=== PATIENT | male | born 1980 | race Caucasian/White ===

== ENCOUNTER → 2020-08-08 12:10 | Outpatient (CLI) | payer OTHER, SELFPAY ==
--- NOTE | ~2020-08-08 | MR_ITS ---
EXAMINATION: MR cervical spine wo con DATE: 08/08/2020 12:55 INDICATION: Cervical radiculopathy on the left. TECHNIQUE: Magnetic resonance imaging (MRI) of the cervical spine was performed without intravenous c ontrast. Sequences included sagittal T2-weighted FSE, sagittal STIR FSE, sagittal T1-weighted FSE, ax ial MERGE, and axial T2-weighted FSE. COMPARISON: None FINDINGS: There is mild kyphosis of cervical spine. Vertebral body heights are normal. Intervertebral disc heights are normal. The spinal cord signal intensity is normal. The following disc levels are s pecifically discussed: C2-C3: The disc does not extend beyond the endplate margin. There is no uncovertebral joint osteoarth ritis. There is mild bilateral facet joint osteoarthritis. There is no neural foraminal stenosis. The re is no central canal stenosis. C3-C4: The disc is bulging. There is mild bilateral uncovertebral joint osteoarthritis. There is mild bilateral facet joint osteoarthritis. There is no neural foraminal stenosis. There is mild central c anal stenosis. C4-C5: The disc does not extend beyond the endplate margin. There is no uncovertebral joint osteoarth ritis. There is mild bilateral facet joint osteoarthritis. There is no neural foraminal stenosis. The re is no central canal stenosis. C5-C6: The disc is bulging. There is mild bilateral uncovertebral joint osteoarthritis. There is no f acet joint osteoarthritis. There is mild bilateral neural foraminal stenosis. There is mild central c anal stenosis. C6-C7: There is a central extrusion. There is mild bilateral uncovertebral joint osteoarthritis. Ther e is no facet joint osteoarthritis. There is no neural foraminal stenosis. There is mild central alize l stenosis. C7-T1: The disc does not extend beyond the endplate margin. There is no uncovertebral joint osteoarth ritis. There is mild right and moderate left facet joint osteoarthritis. There is no neural foraminal stenosis. There is no central canal stenosis. IMPRESSION: 1. Mild cervical spondylosis. Reviewed, dictated and finalized at location B. [employer] ASSURANCE SUPERVISOR TRIM
== END ==
PROVIDERS: PCP Family Medicine Adolescent Medicine; Visit Provider Family Medicine Adolescent Medicine
DX: M47.22 Other spondylosis with radiculopathy, cervical region (principal)
CPT/HCPCS: 72141

== ENCOUNTER 2024-06-24 22:26 | Emergency (ER) | payer BC, SELFPAY ==
--- NOTE | ~2024-06-24 | CT_ITS ---
Non-contrast CT scan of the Abdomen and Pelvis Clinical indication: Hematuria, left flank pain Technique: 2.5 mm axial scans were obtained through the abdomen and pelvis without intravenous or or al contrast. Dose reduction technique was used on this scan by utilizing automated exposure control a nd iterative reconstruction technique. The dose-length product (DLP) was 227.38 mGy-cm. Findings: Images through the lung bases reveal 3 mm right lower lobe pulmonary nodule. 7 mm nonobstructing right renal stone present. No left renal stone evident. No right ureteral stone o r right hydronephrosis. There is a 6 mm distal left ureteral stone, with mild left hydroureteronephro sis. The liver, spleen, pancreas, gallbladder, and adrenals appear normal. There is no aortic aneurysm. There is no evidence of bowel obstruction. Normal appendix. Images through the pelvis were performed. There is no evidence of ascites or lymphadenopathy. Urinary bladder unremarkable. No pelvic mass seen. Impression: 6 mm distal left ureteral stone with mild left hydroureteronephrosis. 7 mm nonobstructing right renal stone. Reviewed, dictated and finalized at [facility]. Impression: 6 mm distal left ureteral stone with mild left hydroureteronephrosis. 7 mm nonobstructing right renal stone.
[2024-06-24 22:27] VITALS: BP 140/94; PULSE 64; RESP 16; TEMP 36.4; O2SAT 98
[2024-06-24 23:34] LABS: Basophils Absolute Auto 0.1 K/mm3 (0.0-0.1); Basophils Percent Auto 0.7 % (0.2-1.2); Eosinophils Absolute Auto 0.1 K/mm3 (0-0.3); Eosinophils Percent Auto 1.4 % (0-4.4); Hematocrit 40.9 % (42.0-52.0); Hemoglobin 13.9 g/dL (14.0-18.0); Immature Granulocyte Absolute 0.02 K/mm3 (0.00-0.031); Immature Granulocyte Percent A 0.3 % (0-0.5); Lymphocytes Absolute Auto 1.74 K/mm3 (0.9-3.2); Lymphocytes Percent Auto 23.6 % (18.3-44.2); Mean Corpuscular Volume 88.1 fl (80-100); Mean Platelet Volume 8.9 fl (7.4-10.4); Monocytes Absolute Auto 0.7 K/mm3 (0.1-0.6); Monocytes Percent Auto 8.8 % (2.6-8.5); Neutrophils Absolute Auto 4.8 K/mm3 (1.3-6.7); Neutrophils Percent Auto 65.2 % (45.5-73.1); Platelet Count Result 217 k/mm3 (150-375); Red Blood Count 4.64 M/mm3 (4.6-6.20); Red Cell Distribution Width 12.6 % (11.5-14.5); White Blood Count 7.4 K/mm3 (4.5-10.0)
[2024-06-24 23:40] LABS: Add Urine Microscopic? YES; Appearance Urine Cloudy (Clear); Bacteria Urine None Seen /hpf; Bilirubin Urine Negative (Negative); Blood Urine 3+ (Negative); Color Urine Yellow (Yellow); Glucose Urine UA Negative (Negative); Ketones Urine 1+ mg/dL (Negative); Leukocyte Esterase Ur Trace LEU/UL (Negative); Nitrate Urine Negative (Negative); Non Pathogenic Casts 0-2; Protein Urine 1+ mg/dL (Negative); RBC Urine >100 /hpf (0-2); Specific Grav Ur 1.026 (1.001-1.035); Squamous Epithelial Cell Urine None Seen /hpf (Few); WBC Urine 0-5 /hpf (0-3); pH Urine 5.5 (5.0-9.0)
[2024-06-24 23:48] LABS: Alanine Aminotransferase 26 U/L (6-50); Albumin Level 4.3 g/dL (3.5-5.1); Alkaline Phosphatase 57 U/L (38-126); Anion Gap 7 mmol/L (4-12); Aspartate Amino Transferase 38 U/L (17-59); Bilirubin,Total 0.6 mg/dL (0.2-1.3); Blood Urea Nitrogen 24 mg/dL (9-20); Carbon Dioxide 27 mmol/L (22-30); Chloride 104 mmol/L (98-107); Estimated CRCL calculation 81 ml/min; Estimated Glomerular Filt Rate > 60; Glucose 107 mg/dL (65-110); Lipase 117 U/L (23-300); Potassium 3.6 mmol/L (3.4-5.0); Sodium 138 mmol/L (137-145)
--- NOTE | 2024-06-25 00:21 | ED_ITS ---
HPI - Abdominal Pain General Chief Complaint: Abdominal Pain Stated Complaint: left flank and back pain Time Seen by Provider: 06/25/24 00:07 Source: patient Mode of arrival: ambulatory Limitations: no limitations History of Present Illness HPI narrative: Patient presents with complaint of Left flank and back pain x1 week. He also noticed that his urine was dark, almost brown. Has not seen any bright red blood. He has been building a deck so thought maybe it was due to working outside and he was dehydrated. Pain has now become dull in general but intense when it comes on. LBM today but he felt like he had to force himself to have a BM. Denies it being hard to go once he did though. No hard stool. No diarrhea or bloody stool. NO history of kidney stones, UTI. Denies urgency / frequency/dysuria. Has not taken any pain medications at home. Does not folllow with a urologist. NO injury/trauma to back or abdomen. Related Data Allergies Allergy/AdvReac Type Severity Reaction Status Date / Time banana Allergy Unknown VOMITING Verified 06/24/24 22:30 No Known Drug Allergies Allergy Unknown Diarrhea Verified 06/24/24 22:30 Exam Const: General: healthy appearing, no acute distress and alert; No confusion, diaphoretic or ill appearing Nutritional Appearance: well nourished Orientation/consciousness: patient oriented x3 Limitations: no limitations HENMT: Head: normal to inspection, no contusions and no lacerations Eyes: Direct Ophthalmoscopy: no photophobia Other: no scleral icterus Neck: Neck: no meningeal signs Resp: Effort & Inspection: normal respiratory effort, not labored, no r etractions, not tachypneic and no use of accessory muscles Cardio: Rate: regular rate GI: GI Palp: Yes Soft to palpation, No Tenderness to palpation present (GI), No Guarding due to palpation present (GI), No Rigid due to palpation and No Rebound tenderness present : General: Yes bladder normal to palpation Back/Spine/Pelvis: Back: no CVA tenderness Skin: General skin exam: normal color, no jaundice and no pallor Neuro: General: patient oriented x3 and moves all extremities Extrem: General: normal to inspection Psych: Mental Status: mental status grossly normal Affect: normal affect, No Sad affect present and No Anxious affect present Attitude: cooperative Course Vital Signs Vital signs: Vital Signs Temperature 97.5 F L 06/24/24 22:27 Pulse Rate 64 06/24/24 22:27 Respiratory Rate 16 06/24/24 22:27 Blood Pressure 140/94 H 06/24/24 22:27 Pulse Oximetry 98 06/24/24 22:27 Oxygen Delivery Room Air 06/24/24 22:27 Temperature 97.4 F L 06/25/24 02:46 Pulse Rate 77 06/25/24 02:46 Respiratory Rate 15 06/25/24 02:46 Blood Pressure 134/88 06/25/24 02:46 Pulse Oximetry 100 06/25/24 02:46 Oxygen Delivery Room Air 06/24/24 22:27 MDM - Abdominal Pain MDM Narrative Medical decision making narrative: Patient presents with L flank/back pain x1 week with some radiation into abdomen where he now has dull pain. Urine has also been dark. In the emergency department is afebrile with vital signs notable for mild h ypertension. Urinalysis with hematuria but without signs of infection. Will proceed with Imaging and analgesia ordered. Creatinine technically within normal limits though unknown baseline so may represent TATUM , unclear at this time though there is elevated BUN. Mild CPK elevation ago not at a level consistent with rhabdomyolysis. Will PO Challenge. Stone at UVJ noted. Discussed regimen of medications to assist with passage and symptom management. Provided prescriptions for this as well as urology follow up contact information. Stable for discharge. Differential Diagnosis Differential diagnosis: Likely abdominal pain, calculus of kidney, constipation, diverticulitis and other ( rhabdomyolysis) Lab Data Attestation: I reviewed the patient's lab results. Lab results narrative: Normocytic anemia with no prior for comparison 06/24/24 23:21 06/24/24 23:21 Labs: Lab Results 06/24/24 06/24/24 06/24/24 Range/Units 23:19 23:21 23:25 WBC 7.4 (4.5-10.0) K/mm3 RBC 4.64 (4.6-6.20) M/mm3 Hgb 13.9 L (14.0-18.0) g/dL Hct 40.9 L (42.0-52.0) % MCV 88.1 (80-100) fl MCH 30.0 (26-34) pg MCHC 34.0 (32-36) g/dl RDW 12.6 (11.5-14.5) % Plt Count 217 (150-375) k/mm3 MPV 8.9 (7.4-10.4) fl Immature Gran % (Auto) 0.3 (0-0.5) % Neut % (Auto) 65.2 (45.5-73.1) % Lymph % (Auto) 23.6 (18.3-44.2) % [place] % (Auto) 8.8 H (2.6-8.5) % Eos % (Auto) 1.4 (0-4.4) % Baso % (Auto) 0.7 (0.2-1.2) % Lymph # (Auto) 1.74 (0.9-3.2) K/mm3 [place] # (Auto) 0.7 H (0.1-0.6) K/mm3 Eos # (Auto) 0.1 (0-0.3) K/mm3 Baso # (Auto) 0.1 (0.0-0.1) K/mm3 Abs Immat Gran (auto) 0.02 (0.00-0.031) K/mm3 Absolute Neuts (auto) 4.8 (1.3-6.7) K/mm3 Absolute Nucleated RBC 0.000 (0.0-0.012) K/mm3 Nucleated RBC % 0.0 (0.0-0.2) % Sodium 138 (137-145) mmol/L Potassium 3.6 (3.4-5.0) mmol/L Chloride 104 (98-107) mmol/L Carbon Dioxide 27 (22-30) mmol/L Anion Gap 7 (4-12) mmol/L BUN 24 H (9-20) mg/dL Creatinine 1.20 (0.7-1.3) mg/dL Estim Creat Clear Calc 81 ml/min Estimated GFR > 60 (59 - ) Glucose 107 (65-110) mg/dL Calcium 10.0 (8.4-10.2) mg/dL Total Bilirubin 0.6 (0.2-1.3) mg/dL AST 38 (17-59) U/L ALT 26 (6-50) U/L Alkaline Phosphatase 57 (38-126) U/L Total Creatine Kinase 454 H (55-170) U/L Total Protein 7.0 (6.3-8.2) g/dL Albumin 4.3 (3.5-5.1) g/dL Lipase 117 (23-300) U/L Urine Color Yellow (Yellow) Urine Appearance Cloudy H (Clear) Urine pH 5.5 (5.0-9.0) Ur Specific [place] 1.026 (1.001-1.035) Urine Protein 1+ H (Negative) mg/dL Urine Glucose (UA) Negative (Negative) mg/dL Urine Ketones 1+ H (Negative) mg/dL Ur Blood (Man) 3+ H (Negative) Urine Nitrate Negative (Negative) Urine Bilirubin Negative (Negative) Urine Urobilinogen 1.0 (<2.0) mg/dL Leukocyte Esterase Rfl Trace H (Negative) ROSALINO/UL Urine RBC >100 H (0-2) /hpf Urine WBC 0-5 (0-3) /hpf Ur Squamous Epith Cells None seen (Few) /hpf Urine Bacteria None seen /hpf Urine Casts 0-2 Imaging Data Attestation: I personally reviewed and interpreted this imaging study as follows: Radiologist's impression: ITS Impressions Abdomen/Pelvis CT 06/25/24 06:24 Impression: 6 mm distal left ureteral stone with mild left hydroureteronephrosis. 7 mm nonobstructing right renal stone. CT Abd/pelvis w/o contrast Stat Rad: limited due to lack of IV contrast. Left UVJ 0.2 cm stone. Mild left hydroureteronephrosis. Correlate for UTI/pyelonephritis. Discharge Plan Discharge Clinical Impression: Calculus of ureterovesical junction (UVJ), Hematuria, Normocytic anemia, El evated CPK Patient Disposition: Home, Self-Care Condition: Stable Instructions: Antibiotic Form, Kidney Stones (ED), Renal Colic (ED), Hematuria (ED), How to Strain Your Urine (ED), Anemia (ED) Additional Instructions: As we discussed, you have a 0.2 cm stone at the intersection between your ureter and bladder known as the UVJ. kidney stones of this size should pass on their own but we use the medications prescribed which can assist this process ( The ibuprofen for pain, the Flomax to move the urine flow forward, and the ondansetron oral disintegrating tablets if you have any nausea provide any new from taking the other medications). You can strain your urine and follow up with urologist (listed below) if desired. return to the emergency department if any new or worsening symptoms such as fever greater than 100 point degrees F intractable nausea or vomiting, pain not responding to medications, etc. Prescriptions: New ibuprofen 600 mg tablet 600 mg PO TID PRN (Reason: pain) Qty: 30 0RF ondansetron 4 mg tablet,disintegrating 4 mg PO Q8H PRN (Reason: nausea and vomiting) Qty: 7 0RF tamsulosin [Flomax] 0.4 mg capsule 0.4 mg PO DAILY Qty: 7 0RF Follow-up/Referrals: Glenroy Connolly MD [Physician] - (urology) Jermaine Chirinos MD [Primary Care Provider] - Stand Alone Forms: Work/School Release IP Time of Disposition: 02:19
[2024-06-25 00:47] LABS: Creatine Kinase 454 U/L (55-170)
[2024-06-25 01:05] VITALS: BP 137/84; PULSE 69; RESP 15; O2SAT 98
--- NOTE | 2024-06-25 01:48 | PC.NURSE ---
Winfield has been held due to pt stating he does not need anything for pain at this time.
[2024-06-25] MEDS: KETOROLAC 15 MG/ML VIAL (*BKC) IV PUSH (02:31)
[2024-06-25] MEDS: TAMSULOSIN HCL 0.4 MG CAPSULE PO (02:31)
[2024-06-25 02:46] VITALS: BP 134/88; PULSE 77; RESP 15; TEMP 36.3; O2SAT 100
--- NOTE | 2024-06-25 02:48 | PC.NURSE ---
15 mg ketorlac given IM in the L deltoid.
== END 2024-06-25 02:47 | disposition home or self-care (01) ==
PROVIDERS: Physician Assistant; Emergency Provider Student in an Organized Health Care Education/Training Program; PCP Family Medicine Adolescent Medicine
DX: N20.1 Calculus of ureter (principal); D64.9 Anemia, unspecified; R74.8 Abnormal levels of other serum enzymes
CPT/HCPCS: 36415; 74176; 80053; 81001; 82550; 83690; 85025; 96374; 99284; A9270; J1885

== ENCOUNTER 2024-11-29 20:19 | Day surgery (SDC) | payer BC, SELFPAY ==
[2024-11-29 20:22] VITALS: BP 135/106; PULSE 99; RESP 15; TEMP 36.3; O2SAT 100
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
--- OUTSIDE RECORDS SUMMARY | 2024-11-29 20:22 | XMS_ITS | Clinical Summary ---
Author Organization [facility] Address [address] [place] [address] Phone Care Team Providers Care Stiff Neck Loader Name Role Phone Jermaine Chirinos MD Primary Care Provider [phone]- [phone] Allergies No known active allergies Medications meloxicam (MOBIC) 15 mg tablet Take 1 Tablet (15 mg) by mouth daily With food. 30 Tablet 1 01/21/2016 Active Hospital, Clinic, or Other Facility Administered Medication Ordered Dose Route Frequency Start Date End Date Status methylPREDNISolone acetate (DEPO-Medrol) 40 mg/mL injection 80 mgIndications:Impin gement syndrome of left shoulder 80 mg Intra-arTICu ONE TIME ONLY 08/05/2017 Active Active Problems No known active problems Social History Tobacco Use Types Packs/Day Years Used Date Smoking Tobacco: Former Cigarettes Q uit: 01/12/2005 Alcohol Use Standard Drinks/Week Comments Not Asked 0 (1 standard drink = 0.6 oz pur e alcohol) Sex and Gender Information Value Date Recorded Sex Assigned at Not on file Legal Sex Male 2:08 PM CDT Gender Identity Not on file Sexual Orientation Not on file Last Filed Vital Signs Vital Sign Reading Time Taken Comments Blood Pressure 130/84 01/13/2016 9:02 AM CDT Pulse 69 01/13/2016 9:02 AM CDT Temperature - - Respiratory Rate - - Oxygen Saturation - - Inhaled Oxygen Concentration - - Weight 86.2 kg (190 lb) 07/20/2017 8:03 AM SHELL COREMAKER Height 188 cm (6' 2 ) 07/20/2017 8:03 AM SHELL COREMAKER Body Mass Index 24.39 07/20/2017 8:03 AM SHELL COREMAKER Plan of Treatment Health Maintenance Due Date Last Done Comments DTAP/TDAP/TD VACCINES (1 - Tdap) 01/30/1999 HEPATITIS B VACCINES (1 of 3 - 19+ 3-dose series) 01/30/1999 INFLUENZA VACCINE (#1) 2024 HPV VACCINES Aged Out No longer eligi ble based on patient's age to complete this topic PNEUMOCOCCAL VACCINE 0-49 YEARS Aged Out No longer eligible based on patient's age to complete this topic Care Teams Stiff Neck Loader Relationship Specialty Start Date End Date Jermaine Chirinos MD PCP - General Family Practice 01/21/16
[2024-11-29] MEDS: SODIUM CHLORIDE 0.9% IV 1,000 ML 999 ML IV CONT (21:18)
[2024-11-29] MEDS: GLUCAGON FOR INJ 1 MG VIAL IV PUSH (21:18)
[2024-11-29] MEDS: ONDANSETRON INJ 4 MG/2 ML VIAL IV PUSH (21:18)
--- NOTE | 2024-11-29 21:19 | ED_ITS ---
HPI - General Adult General Chief complaint: Skin/Abscess/Foreign Body Stated complaint: Difficulty swallowing-poss food stuck Time Seen by Provider: 11/29/24 21:19 History of Present Illness HPI narrative: Patient is a 44-year-old male who presents ER with difficulty swelling. He was eating some roast when it got stuck. He has history of esophageal stricture and required dilation 2 years ago at [facility]. Reports adverse related to acid reflux. He is not currently on a PPI. He is unable to get the food to pass which he typically is able to do. He is having his spit and water come back up when he tries to swallow. He has discomfort in the chest due to this. Related Data Allergies Allergy/AdvReac Type Severity Reaction Status Date / Time banana Allergy Unknown VOMITING Verified 06/24/24 22:30 No Known Drug Allergies Allergy Unknown Diarrhea Verified 06/24/24 22:30 Review of Systems Review of Systems: All systems reviewed & are unremarkable except as noted in HPI and below Constitutional: Constitutional: Reports no additional constitutional complaints ENT: Reports system reviewed and no additional complaints, except as documented Cardiovascular: Cardiovascular: Reports no additional cardiovascular complaints Gastrointestinal: Gastrointestinal: Reports no additional gastrointestinal complaints PMFSH Past Medical History Medical History (Updated 11/29/24 @ 22:08 by Kiran Song MD) GERD (gastroesophageal reflux disease) Surgical History Surgical History (Updated 11/29/24 @ 21:20 by Kiran Song MD) History of esophagogastroduodenoscopy (EGD) Exam Narrative: GENERAL: Uncomfortable-appearing, well-nourished, and in no acute distress. HEAD: Normocephalic, atraumatic. ENT: Mucous membranes moist. Frequent spitting NECK: Supple. CHEST: Clear to auscultation. No respiratory distress. HEART: Regular rate and rhythm. Normal peripheral pulses. ABDOMEN: Soft, nontender, nondistended. EXTREMITIES: Normal range of motion. No edema. NEURO: Alert and oriented x3. PSYCH: Normal mood and affect. Course Course Emergency Course: GI will take the patient to the GI suite for a procedure. Vital Signs Vital signs: Vital Signs Temperature 97.4 F L 11/29/24 20:22 Pulse Rate 99 11/29/24 20:22 Respiratory Rate 15 11/29/24 20:22 Blood Pressure 135/106 H 11/29/24 20:22 Pulse Oximetry 100 11/29/24 20:22 Oxygen Delivery Room Air 11/29/24 20:22 Temperature 97.4 F L 11/29/24 20:22 Pulse Rate 99 11/29/24 20:22 Respiratory Rate 15 11/29/24 20:22 Blood Pressure 135/106 H 11/29/24 20:22 Pulse Oximetry 100 11/29/24 20:22 Oxygen Delivery Room Air 11/29/24 20:22 Medical Decision Making Vital Signs Vital Signs: Vital Signs Temperature 97.4 F L 11/29/24 20:22 Pulse Rate 99 11/29/24 20:22 Respiratory Rate 15 11/29/24 20:22 Blood Pressure 135/106 H 11/29/24 20:22 Pulse Oximetry 100 11/29/24 20:22 Oxygen Delivery Room Air 11/29/24 20:22 Temperature 97.4 F L 11/29/24 20:22 Pulse Rate 99 11/29/24 20:22 Respiratory Rate 15 11/29/24 20:22 Blood Pressure 135/106 H 11/29/24 20:22 Pulse Oximetry 100 11/29/24 20:22 Oxygen Delivery Room Air 11/29/24 20:22 Lab Data Labs: Lab Results 11/29/24 Range/Units 21:21 POC Capillary Glucose 105 (65-105) mg/dl Discharge Plan Discharge Clinical Impression: Esophageal obstruction due to food impaction Patient Disposition: Still a Patient Condition: Stable Patient Language: Turkmen Prescriptions: No Action ibuprofen 600 mg tablet 600 mg PO TID PRN (Reason: pain) Qty: 30 0RF ondansetron 4 mg tablet,disintegrating 4 mg PO Q8H PRN (Reason: nausea and vomiting) Qty: 7 0RF tamsulosin [Flomax] 0.4 mg capsule 0.4 mg PO DAILY Qty: 7 0RF Follow-up/Referrals: Jermaine Chirinos MD [Primary Care Provider] -
[2024-11-29 21:23] LABS: Glucose Point of Care 105 mg/dl (65-105)
--- OUTSIDE RECORDS SUMMARY | 2024-11-29 22:06 | XMS_ITS | Clinical Summary ---
Author Organization [facility] Address [address] [place] [address] Phone Care Team Providers Care Operating Engineer Apprentice Name Role Phone Jermaine Chirinos MD Primary Care Provider +1- [phone] Allergies No known active allergies Medications meloxicam [...] 86.2 kg (190 lb) 07/20/2017 8:03 AM TECHNICAL SERVICE REPRESENTATIVE Height 188 cm (6' 2 ) 07/20/2017 8:03 AM TECHNICAL SERVICE REPRESENTATIVE Body Mass Index 24.39 07/20/2017 8:03 AM TECHNICAL SERVICE REPRESENTATIVE Plan of Treatment Health Maintenance Due Date [...] age to complete this topic Care Teams Operating Engineer Apprentice Relationship Specialty Start Date End Date Jermaine Chirinos MD PCP - General Family Practice 01/21/16
--- OUTSIDE RECORDS SUMMARY | 2024-11-29 22:06 | XMS_ITS | Encounter Summary ---
Author Organization [facility] Address [address] [place] [address] Care Team Providers Care Grinder Gear Name Role Phone Jermaine Chirinos MD Primary Care Provider +1- [phone] Encounter Details Date Type Department Care Team [...] on filedocumented in this encounter Care Teams Grinder Gear Relationship Specialty Start Date End Date Jermaine Chirinos MD PCP - General Family Practice 01/21/16 documented as of this encounter
--- NOTE | 2024-11-29 22:13 | P.PNAN_ITS ---
Anes - Initial Pre Proc Eval Procedure: EGD Date/Time: 11/29/24 22:13 Surgeon: David Pre Op Diagnosis: Difficulty swallowing-poss food stuck Patient Data Age: 44 Gender: M Height: 1.87 m Weight: 92.2 kg Last Vital Signs Temp 36.3 C L 11/29/24 20:22 Pulse 99 11/29/24 20:22 Resp 15 11/29/24 20:22 BP 135/106 H 11/29/24 20:22 Pulse Ox 100 11/29/24 20:22 O2 Del Method Room Air 11/29/24 20:22 Allergies Allergy/AdvReac Type Severity Reaction Status Date / Time banana Allergy Unknown VOMITING Verified 06/24/24 22:30 No Known Drug Allergies Allergy Unknown Diarrhea Verified 06/24/24 22:30 Home Medications ?Medication ?Instructions ?Recorded ?Confirmed ?Type ibuprofen 600 mg tablet 600 mg PO TID PRN pain #30 tabs 06/25/24 Rx ondansetron 4 mg disintegrating 4 mg PO Q8H PRN nausea and 06/25/24 Rx tablet vomiting #7 tabs tamsulosin 0.4 mg capsule (Flomax) 0.4 mg PO DAILY #7 caps 06/25/24 Rx Laboratory Tests 11/29/24 21:21 POC Capillary Glucose 105 mg/dl (65-105) Patient hx anesthesia problems: none Family hx anesthesia problems: none Prior surgeries: EGD w/ esophogeal dilation Results Review: All pre-operative results and documents have been reviewed as part of the pre- operative evaluation. [facility] Past Medical History Medical History GERD (gastroesophageal reflux disease) Surgical History Surgical History History of esophagogastroduodenoscopy (EGD) Anes - Eval Final PreProcedure Day of Procedure 11/29/24 22:13 Patient weight: normal Heart: regular rate and rhythm Lungs: clear to auscultation Airway: Mallampati scale class 1 Neurological: alert and oriented Last oral intake: 6 hours ASA classification: I Emergent: yes Anesthetic plan: proceed Anesthesia type and monitoring: general ETT and standard monitoring Results Review: All pre-operative results and documents have been reviewed as part of the pre- operative evaluation. Informed Consent: The patient's anesthetic plan and its attendant risks and benefits were discussed with the patient/family/POA. Questions were solicited and answers provided to the satisfaction of the patient/family/POA.
[2024-11-29 22:28] VITALS: BP 139/95; PULSE 99; RESP 14; O2SAT 100
[2024-11-29 22:55] VITALS: BP 112/77; PULSE 84; RESP 20; TEMP 36.6; O2SAT 95
--- NOTE | 2024-11-29 23:04 | SUR.OPER ---
Patient pre oped and recovered in procedure room 3. See Humble Leroy DYNAMO REPAIRER charting for LR.
[2024-11-29 23:20] VITALS: BP 105/66; PULSE 89; RESP 21; O2SAT 95
--- NOTE | 2024-11-29 23:21 | WPDGICN ---
Assessment and Plan Assessment and plan (1) Esophageal obstruction due to food impaction: Code(s): T18.128A - Food in esophagus causing other injury, initial encounter; W44.F3XA - Food entering into or through a natural orifice, initial encounter Status: Acute Assessment and Plan: Differential diagnosis includes eosinophilic esophagitis, Schatzki ring or scarring from previous esophageal resection as described above. Will perform EGD and possible dilatation. GI Consult Note Consult date/time: 11/29/24 23:21 Reason for consult: Food impaction HPI: Alejandro Jang is a 44 year old male with a history of MALT lymphoma diagnosed 10 years ago. The patient stated that he underwent endoscopic resection in the cardia region of a nodule that was diagnosed as lymphoma. He did not need further treatment. He states he has been having progressively worsening dysphagia for several years, lately getting even worse associated with occasional reflux. He came this afternoon to the emergency room complaining of inability to swallow his own saliva after eating solid food. However, while he was in the process of waiting for endoscopy and anesthesia team he felt that the bolus has passed to the stomach. Review of Systems Review of Systems: All systems reviewed & are unremarkable except as noted in HPI and below PMFSH Past Medical History Medical History GERD (gastroesophageal reflux disease) Surgical History Surgical History History of esophagogastroduodenoscopy (EGD) Meds Home Medications and Allergies Home Medications ?Medication ?Instructions ?Recorded ?Confirmed ?Type ibuprofen 600 mg tablet 600 mg PO TID PRN pain #30 tabs 06/25/24 Rx ondansetron 4 mg disintegrating 4 mg PO Q8H PRN nausea and 06/25/24 Rx tablet vomiting #7 tabs tamsulosin 0.4 mg capsule (Flomax) 0.4 mg PO DAILY #7 caps 06/25/24 Rx Allergies Allergy/AdvReac Type Severity Reaction Status Date / Time banana Allergy Unknown VOMITING Verified 06/24/24 22:30 No Known Drug Allergies Allergy Unknown Diarrhea Verified 06/24/24 22:30 Vital Signs Vital Signs - 24 hr 11/29/24 20:22 11/29/24 22:28 11/29/24 22:55 Temperature 97.4 F L 97.9 F Pulse Rate 99 99 84 Respiratory Rate 15 14 20 Blood Pressure 135/106 H 139/95 H 112/77 Pulse Oximetry 100 100 95 Oxygen Delivery Room Air Room Air Exam Const: General: cooperative and healthy appearing Resp: Effort & Inspection: normal respiratory effort and able to speak in complete sentences Auscultation: clear to auscultation bilaterally Cardio: Rate: regular rate Rhythm: regular rhythm GI: Inspection: normal to inspection GI Palp: No No hepatosplenomegaly present Auscultation: normal bowel sounds Rectal Exam: deferred Skin: General skin exam: normal color Psych: Appearance: grossly normal Mental Status: mental status grossly normal
[2024-11-29] MEDS: LACTATED RINGERS 1,000 ML 150 ML IV CONT (23:27)
[2024-11-29 23:30] VITALS: BP 113/70; PULSE 88; RESP 20; O2SAT 95
[2024-11-29 23:40] VITALS: BP 107/63; PULSE 87; RESP 20; O2SAT 96
== END 2024-11-29 23:53 | disposition home or self-care (01) ==
LOC: ANHED 22:18 → ANHSURGERY 22:20
PROVIDERS: Emergency Provider Emergency Medicine; PCP Family Medicine Adolescent Medicine; Visit Provider Internal Medicine Gastroenterology
PROC: 0DJ08ZZ Inspection of Upper Intestinal Tract, Via Natural or Artificial Opening Endoscopic (ICD-10-PCS; CPT 43450; principal; 2024-11-29 22:30)
DX: T18.128A Food in esophagus causing other injury, initial encounter (principal); W44.F3XA Food entering into or through a natural orifice, initial encounter; K44.9 Diaphragmatic hernia without obstruction or gangrene; K22.2 Esophageal obstruction; K21.9 Gastro-esophageal reflux disease without esophagitis; Z85.72 Personal history of non-Hodgkin lymphomas
CPT/HCPCS: 43450; 82948; J1610; J2003; J2405; J2704; J7030; J7120